=== PATIENT | female | born 1970 | race Caucasian/White ===

== ENCOUNTER 2017-01-20 11:42 | Emergency (ER) | payer OTHER ==
[~2017-01-20] VITALS: Ht 162.6 cm; Wt 57.2 kg
--- NOTE | 2017-01-20 12:28 | ED PSYCHIATRIC COMPLAINT ---
History of Present Illness General Chief Complaint: Psychiatric Related Complaint Stated Complaint: SENT BY DR. MARCOS FOR MENTAL HEALTH ISSUE Source: patient Exam Limitations: no limitations Vital Signs & Intake/Output Vital Signs & Intake/Output Vital Signs Date Time Temp Pulse Resp B/P Pulse O2 O2 Flow FiO2 Ox Delivery Rate 01/20 1817 97.4 82 16 118/66 98 Room Air 01/20 1423 98.7 80 18 118/74 97 Room Air 01/20 1146 99.0 81 16 131/85 98 Room Air Allergies Coded Allergies: MDX - SULFA (sulfonamide) (SULFA (SULFONAMIDE)) (UNKNOWN 05/18/15) Reconcile Medications Escitalopram Oxalate 20 MG TABLET 1 TAB PO DAILY DEPRESSION (Reported) Triage Note: PT STATES DR. MARCOS SENT HER HERE FOR MENTAL HEALTH ISSUES.. PT STATES SHE FEELS +SI +HI FOR WHILE. PT IS ON MEDICATION AND STATES SHE IS TAKING THEM DIRECTED DENIES ETOH STATES SHE HAS 20 YEARS RECOVERY. DENIES DRUG USE. Triage Nurses Notes Reviewed? yes Onset: Abrupt Duration: constant, changing over time Timing: recent history Severity: moderate, severe : No Patient currently breastfeeds: No HPI: 46-year-old female comes into emergency room sent in by her primary care doctor for further evaluation of suicidal and homicidal ideation. Patient reports that she's been feeling a lot of rage. She is a person that can exert feelings locked up. She has been going through a bad divorce. She's been having difficulty sleeping. She denies any alcohol or drug use. Previous substance abuse 20 years ago. Denies any pain or any other symptoms at this time. Patient is emotional. Past History Travel History Traveled to [place] past 21 day No Medical History Any Pertinent Medical History? see below for history Gastrointestinal: irritable bowel syndrome Psychiatric: bipolar disease, depression Endocrine: hypothyroidism Surgical History Surgical History: non-contributory Psychosocial History What is your primary language Bulgarian Tobacco Use: Quit >30 days ago ETOH Use: denies use Illicit Drug Use: denies illicit drug use Family History Hx Contributory? No Review of Systems Review of Systems Constitutional: Reports: no symptoms. EENTM: Reports: no symptoms. Respiratory: Reports: no symptoms. Cardiovascular: Reports: no symptoms. GI: Reports: no symptoms. Genitourinary: Reports: no symptoms. Musculoskeletal: Reports: no symptoms. Skin: Reports: no symptoms. Neurological/Psychological: Reports: see HPI. Hematologic/Endocrine: Reports: no symptoms. Immunologic/Allergic: Reports: no symptoms. All Other Systems: Reviewed and Negative Physical Exam Physical Exam General Appearance: well developed/nourished, mild distress Head: atraumatic Eyes: Bilateral: normal appearance, EOMI. Ears, Nose, Throat: normal ENT inspection, hearing grossly normal Neck: normal inspection Respiratory: normal breath sounds, no respiratory distress Cardiovascular: regular rate/rhythm Extremities: normal range of motion Neurological/Psychiatric: awake, agitated, alert, normal mood/affect Appearance/Memory/Insight: appropriate appearance Behavoir/Eye Contact/Speech: cooperative Thoughts/Hallucinations: normal thought pattern, no apparent hallucination Skin: intact, normal color, warm/dry SAD PERSONS SAD PERSONS Response Value Depression/Hopelessness? yes 2 Previous Attempts/Psych Care yes 1 Single//? yes 1 Stated Future Intent? yes 2 Total 6 SAD PERSONS Done? yes Progress Differential Diagnosis: dementia, drug intoxication, drug overdose, drug withdrawal, electrolyte abnormality, encephalitis, hypoglycemia, hypothyroidism, IC hem/mass/tumor, meningitis, DEPRESSION, ANXIETY, Plan of Care: Orders Procedure Date/time Status Add-on Test (ER Only) 01/20 1829 Active Continuous Observation Monitor 01/20 1448 Active HUMAN BETA HCG SCREEN 01/20 1430 Complete URINE DRUGS OF ABUSE 01/20 1211 Complete ETHANOL 01/20 1211 Complete COMPREHENSIVE METABOLIC PANEL 01/20 1211 Complete CBC WITHOUT DIFFERENTIAL 01/20 1211 Complete ED CRISIS PSYCH CONSULT 01/20 1211 Active Laboratory Tests 01/20/ 1430: Anion Gap 11, Estimated GFR > 60, BUN/Creatinine Ratio 14.4, Glucose 108 H, Calcium 8.9, Total Bilirubin 0.5, AST 20, ALT 34, Alkaline Phosphatase 59, Total Protein 6.3, Albumin 3.9, Globulin 2.4, Albumin/Globulin Ratio 1.6, Total Beta HCG NEGATIVE, CBC w Diff NO MAN DIFF REQ, RBC 4.28, MCV 90.3, MCH 31.1 H, RDW 12.7, MPV 8.3, Gran % 66.1, Lymphocytes % 25.6, Monocytes % 5.0, Eosinophils % 3.0, Basophils % 0.3, Absolute Granulocytes 4.5, Absolute Lymphocytes 1.7, Absolute Monocytes 0.3, Absolute Eosinophils 0.2, Absolute Basophils 0, PUBS MCHC 34.5, Serum Alcohol < 10.0 01/20/17 1230: Urine Opiates Screen < 100.00, Methadone Screen 54, Barbiturate Screen < 60, Ur Phencyclidine Scrn < 6.00, Amphetamines Screen < 100, U Benzodiazepines Scrn < 85, Urine Cocaine Screen < 50, Urine Cannabis Screen < 5.00 Departure Departure Disposition: HOME OR SELF CARE Condition: Stable Clinical Impression Primary Impression: Major depression Referrals: JOSÉ ANTONIO STEEN,BRADFORD Leon (PCP/Family) Departure Forms: Customer Survey General Discharge Information
[2017-01-20] MEDS ORDERED: ESCITALOPRAM OX20 MG PO (12:35)
[2017-01-20 14:46] LABS: ABSOLUTE BASOPHIL COUNT 0 /CUMM (0.0-0.2); ABSOLUTE EOSINOPHIL COUNT 0.2 /CUMM (0.0-0.7); ABSOLUTE GRANULOCYTE CT 4.5 /CUMM (1.4-6.5); ABSOLUTE LYMPH COUNT 1.7 /CUMM (1.2-3.4); ABSOLUTE MONOCYTE COUNT 0.3 /CUMM (0.10-0.60); BASOPHIL % 0.3 % (0.0-2.0); GRANULOCYTE % 66.1 % (42.2-75.2); HEMATOCRIT 38.6 % (37-47); MEAN CORPUSCULAR HGB 31.1 PG (27.0-31.0); MEAN CORPUSCULAR HGB CONC 34.5 G/DL (33.0-37.0); MEAN CORPUSCULAR VOLUME 90.3 FL (81.0-99.0); MEAN PLATELET VOLUME 8.3 FL (7.4-10.4); PLATELET COUNT 274 /CUMM (130-400); RBC DISTRIBUTION WIDTH 12.7 % (11.5-14.5); RED BLOOD CELL CT 4.28 /CUMM (4.20-5.40); WHITE BLOOD CELL COUNT 6.8 /CUMM (4.8-10.8)
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
[2017-01-20 18:17] VITALS: BP 118/66
== END 2017-01-20 20:35 | disposition other institution (70) ==
LOC: ERH 11:42
PROVIDERS: Physician Assistant Medical
DX: F32.9 Major depressive disorder, single episode, unspecified (principal); R45.850 Homicidal ideations
CPT/HCPCS: 80307; G0463; G0480